=== PATIENT | female | born 1985 | race Caucasian/White ===

== ENCOUNTER 2016-11-06 09:04 | Emergency (ER) | payer BC ==
[2016-11-06 10:17] LABS: ABSOLUTE NEUTROPHIL COUNT 7.2 K/mm3 (1.8-7.7); BASO % 0.4 % (0.2-1.0); EOS % 0.4 % (0.9-2.9); HEMATOCRIT 35.3 % (37.0-47.0); IMM NEUT% 0.3 % (0-1); LYMPH # 1.9 (1.0-4.8); LYMPH % 19.1 % (15-45); MEAN CELL VOLUME 86.5 fl (81.0-99.0); MEAN CORPUSCULAR HEMOGLOBIN 29.4 pg (27.0-31.0); MEAN PLATELET VOLUME 8.9 fl (7.4-10.4); MONO # 0.6 (0.0-0.8); MONO % 6.3 % (4-12); NEUT % 73.5 % (43-75); PLATELET COUNT 383 K/mm3 (130-400); RED CELL DISTRIBUTION WIDTH 12.3 % (11.5-14.5)
[2016-11-06 10:40] LABS: ALB/GLOB RATIO 1.3 (>1.0); ALBUMIN 3.9 gm/dL (3.5-5.7); CALCIUM 9.2 mg/dL (8.6-10.3)
--- NOTE | 2016-11-06 11:37 | US ---
PELVIC COMPLETE, TRANSVAGINAL ECHOGRAPHY: 11/06/2016 10:05 AM CLINICAL HISTORY: Intermittent bleeding since September. Heavy bleeding with clots over the last week. Comparison: None STUDY: Transabdominal and transvaginal imaging was performed with multiple grayscale, color-flow and duplex Doppler imaging. FINDINGS: Uterus: Orientation: Anteverted. Size: 6.5 x 3.5 x 3.4 cm Mass: Hyperechoic focus measuring 1.5 x 1.4 x 0.9 cm with blood flow is noted. This abuts and deforms the endometrial stripe. Differential considerations could include fibroid or polyp. Cervix: Nabothian cyst. Endometrium: Endometrial thickness measures 6 mm. Ovaries: Size: Right measures 2.3 x 2.2 x 2.1 cm; left measures 1.8 x 1.6 x 1.9 cm. Arterial and venous blood flow: right ovary: Present, left ovary: Present Mass: None. Adnexa: Mass: None. Cul-de-sac: No free fluid. IMPRESSION: Hyperechoic focus is noted along the anterior margin of the uterus, abutting and deforming the endometrial stripe. Findings could relate to fibroid or polyp. Sonohysterography could be helpful in further assessment as clinically warranted. Findings were called to Dr. Arias at approximately 1128 hours on 11/06/2016.
[2016-11-06] MEDS ORDERED: MEDROXYPROGESTERONE ACET 5 MG TABLET PO ONE (13:00)
== END 2016-11-06 13:17 | disposition home or self-care (01) ==
LOC: ED 09:04
DX: N93.8 Other specified abnormal uterine and vaginal bleeding (principal)
CPT/HCPCS: 84703; 85025; 80053; 76856; 76830; 99283 ×2; A9270